=== PATIENT | male | born 1985 | race Caucasian/White ===

== ENCOUNTER 2018-01-09 09:53 | Emergency (ER) | payer SELFPAY ==
[2018-01-09 10:10] VITALS: BP 124/84; PULSE 82; RESP 20; TEMP 37.2; O2SAT 99; BMI 25.8
--- NOTE | 2018-01-09 10:14 | HMH.EDUTC ---
[facility] [place] Clinical Impression: Follow up Disposition: Home, Self-Care Condition on Discharge: Good Additional Instructions: Return to work Over the counter Motrin or Tylenol as needed for pain or fever Follow up with family doctor Return if needed Referrals: Tony Love MD [Primary Care Provider] - Forms: Work/School Release Time of Disposition: 10:23 Medical Decision Making - Medical Records Medical records reviewed: Yes: I reviewed the patient's medical records. Vital Signs: 01/09/18 10:10 Temperature 99 F Temperature Source Temporal Artery Scan Pulse Rate [Right] 82 Respiratory Rate 20 Blood Pressure [Right Arm] 124/84 Blood Pressure Mean [Right Arm] 97 Blood Pressure Source [Right Arm] Automatic Cuff Blood Pressure Position [Right Arm] Sitting 02 Sat by Pulse Oximetry 99 Oxygen Delivery Method Room Air - Milton Inquiry Pt receiving controlled substance: No Milton was queried for this patient: No [facility] [place] HPI - General Stated complaint: cold cough Mode of Arrival: Ambulatory Source of Information: Patient Limitations: No Limitations Description of Symptoms (Recalled from Triage Doc. by RN): STATES NEED FLU TEST TO RETURN TO WORK HEENT Symptoms (Recalled from RN notes): No Resp Symptoms (Recalled from RN notes): No Skin Symptoms (Recalled from RN notes): No MS Symptoms (Recalled from RN notes): No Functional Status (Recalled from RN notes): N - History of Present Illness Provider Complaint: Patient state that he was treated for the flu last week States that he went to go back to work and they would not let him return until he came back and got tested for the flu again and had a negative result State that he is feeling much better just here to get a flu test - Related Data Home Medications Medication Instructions Recorded Confirmed buprenorphine 8 mg-naloxone 2 mg 2 tab SUBLINGUAL QDAY 12/12/17 sublingual tablet Allergies Allergy/AdvReac Type Severity Reaction Status Date / Time No Known Allergies Allergy Verified 01/09/18 10:14 - Worker's Comp Is this a Worker's Comp case?: No [facility] History I have reviewed the patient's past medical history: Yes Other Surgeries: Yes: Hernia Repair, Other (Oral Surgery, Plastic Surgery on LEFT thumb.) - *Social History Smoking Status: Current every day smoker Tobacco Type: cigarettes Alcohol Intake: never - Psychiatric History Expresses thoughts of harming self/others: None Suicide Plan Description: No Plan *Family Hx:: Cancer, Coronary Artery Disease ROS Obtained: Yes All systems reviewed & no additional complaints - Constitutional Constitutional: Denies chills, Denies fever(s) Physical Exam - General General appearance: alert, in no apparent distress - ENT ENT exam: Present: normal exam, normal oropharynx, mucous membranes moist, TM's normal bilaterally, normal external ear exam - Respiratory Respiratory exam: Present: normal lung sounds bilaterally. Absent: respiratory distress - Cardiovascular Cardiovascular exam: Present: regular rate, normal rhythm. Absent: JVD - Abdominal Exam Abdominal exam: Present: soft, normal bowel sounds. Absent: distention, tenderness, guarding - Neurological Exam Neurological exam: Present: alert, oriented X3
--- NOTE | 2018-01-09 10:18 | ED_ITS ---
[facility] [place] Disposition Clinical Impression: Follow up Disposition: Home, Self-Care Condition on Discharge: Good Additional Instructions: Return to work Over the counter Motrin or Tylenol as needed for pain or fever Follow up with family doctor Return if needed Referrals: Tony Love MD [Primary Care Provider] - Forms: Work/School Release Time of Disposition: 10:23 Medical Decision Making - Medical Records Medical records reviewed: Yes: I reviewed the patient's medical records. Vital Signs: 01/09/18 10:10 Temperature 99 F Temperature Source Temporal Artery Scan Pulse Rate [Right] 82 Respiratory Rate 20 Blood Pressure [Right Arm] 124/84 Blood Pressure Mean [Right Arm] 97 Blood Pressure Source [Right Arm] Automatic Cuff Blood Pressure Position [Right Arm] Sitting 02 Sat by Pulse Oximetry 99 Oxygen Delivery Method Room Air - Milton Inquiry Pt receiving controlled substance: No Milton was queried for this patient: No [facility] [place] HPI - General Stated complaint: cold cough Mode of Arrival: Ambulatory Source of Information: Patient Limitations: No Limitations Description of Symptoms (Recalled from Triage Doc. by RN): STATES NEED FLU TEST TO RETURN TO WORK HEENT Symptoms (Recalled from RN notes): No Resp Symptoms (Recalled from RN notes): No Skin Symptoms (Recalled from RN notes): No MS Symptoms (Recalled from RN notes): No Functional Status (Recalled from RN notes): N - History of Present Illness Provider Complaint: Patient state that he was treated for the flu last week States that he went to go back to work and they would not let him return until he came back and got tested for the flu again and had a negative result State that he is feeling much better just here to get a flu test - Related Data Home Medications Medication Instructions Recorded Confirmed buprenorphine 8 mg-naloxone 2 mg 2 tab SUBLINGUAL QDAY 12/12/17 sublingual tablet Allergies Allergy/AdvReac Type Severity Reaction Status Date / Time No Known Allergies Allergy Verified 01/09/18 10:14 - Worker's Comp Is this a Worker's Comp case?: No [facility] History I have reviewed the patient's past medical history: Yes Other Surgeries: Yes: Hernia Repair, Other (Oral Surgery, Plastic Surgery on LEFT thumb.) - *Social History Smoking Status: Current every day smoker Tobacco Type: cigarettes Alcohol Intake: never - Psychiatric History Expresses thoughts of harming self/others: None Suicide Plan Description: No Plan *Family Hx:: Cancer, Coronary Artery Disease ROS Obtained: Yes All systems reviewed & no additional complaints - Constitutional Constitutional: Denies chills, Denies fever(s) Physical Exam - General General appearance: alert, in no apparent distress - ENT ENT exam: Present: normal exam, normal oropharynx, mucous membranes moist, TM's normal bilaterally, normal external ear exam - Respiratory Respiratory exam: Present: normal lung sounds bilaterally. Absent: respiratory distress - Cardiovascular Cardiovascular exam: Present: regular rate, normal rhythm. Absent: JVD - Abdominal Exam Abdominal exam: Present: soft, normal bowel sounds. Absent: distention, tenderness, guarding - Neurological Exam Neurological exam: Present: alert, oriented X3
[2018-01-09 10:24] LABS: UTC Influenza A Antigen Negative (Negative); UTC Influenza B Antigen Negative (Negative)
[2018-01-09 10:32] VITALS: BP 124/84; PULSE 82; RESP 20; TEMP 37.2; O2SAT 99
== END 2018-01-09 10:36 | disposition home or self-care (01) ==
PROVIDERS: Nurse Practitioner; Emergency Provider Emergency Medicine; Family Provider Internal Medicine Adolescent Medicine; PCP Internal Medicine Adolescent Medicine
DX: J10.1 Influenza due to other identified influenza virus with other respiratory manifestations (principal)
CPT/HCPCS: 87804; 99202

== ENCOUNTER → 2018-05-13 06:33 | Outpatient (CLI) | payer OTHER, SELFPAY ==
--- NOTE | 2018-05-13 06:40 | XR_ITS ---
XR chest 2V HISTORY: ITS.REASON: PT CURRENT SMOKER ORDERING PHYSICIAN: Quincy Colvin PATIENT AGE: 32 years COMPARISON: None FINDINGS: The cardiomediastinal silhouette and pulmonary vascularity are within normal limits. The lungs are clear without infiltrates, suspicious nodules, or pleural effusions. No acute bony abnormalities. IMPRESSION: Negative chest, no acute finding
[2018-05-13 07:12] LABS: Basophils % 0.2 % (0.1-2.0); Eosinophils # 0.4 K/mm3 (0.0-0.4); Eosinophils % 4.5 % (0.1-12.0); Hematocrit 39.9 % (42.0-52.0); Hemoglobin 14.6 g/dL (14.1-18.0); Lymphocytes # 3.5 K/mm3 (0.7-4.5); Lymphocytes % 38.3 K/mm3 (10-50); Mean Corpuscular HGB Conc 36.7 g/dL (31.8-35.4); Mean Corpuscular Hemoglobin 33.4 pg (27.0-31.2); Mean Corpuscular Volume 91.2 fl (80-94); Mean Platelet Volume 8.2 fl (7.4-10.4); Monocytes # 0.6 K/mm3 (0.1-1.0); Monocytes % 6.8 % (1.7-9.3); Neutrophils # 4.6 K/mm3 (1.8-7.8); Neutrophils % 50.2 % (37.0-80.0); Platelet Count 218 K/mm3 (142-424); Red Blood Count 4.38 M/mm3 (4.60-6.20); Red Cell Distribution Width 12.3 % (11.5-17.5); White Blood Count 9.2 K/mm3 (4.8-10.8)
[2018-05-13 07:17] LABS: Blood Urea Nitrogen 17 mg/dL (7-18); Carbon Dioxide 28 mmol/L (21.0-32.0); Chloride 107 mmol/L (98-107); Creatinine,Serum 0.86 mg/dL (0.70-1.30); Estimated Glomerular Filt Rate 103 ml/min (>60); GFR (African American) 125 ML/MIN (>60); Glucose 94 mg/dL (74-106); Sodium 141 mmol/L (136-145)
== END ==
PROVIDERS: PCP Internal Medicine Adolescent Medicine; Visit Provider Orthopaedic Surgery Sports Medicine
DX: Z01.818 Encounter for other preprocedural examination (principal); Z87.898 Personal history of other specified conditions; R73.09 Other abnormal glucose
CPT/HCPCS: 36415; 71046; 80048; 85025

== ENCOUNTER 2018-05-17 10:00 | Outpatient (RCR) | payer OTHER, SELFPAY | END 2018-05-17 10:01 | disposition home or self-care (01) | LOC: OT 10:00 | PROVIDERS: Family Provider Internal Medicine Adolescent Medicine; PCP Internal Medicine Adolescent Medicine; Visit Provider Orthopaedic Surgery | DX: M25.512 Pain in left shoulder (principal); S49.90XA Unspecified injury of shoulder and upper arm, unspecified arm, initial encounter | CPT/HCPCS: 97014; 97035; 97110; 97140; 97164; 97165; G0283 ==

== ENCOUNTER 2018-12-03 15:00 | Outpatient (RCR) | payer OTHER, SELFPAY | END 2018-12-03 15:05 | disposition home or self-care (01) | LOC: OT 15:00 | PROVIDERS: Family Provider Internal Medicine Adolescent Medicine; PCP Internal Medicine Adolescent Medicine; Visit Provider Orthopaedic Surgery | DX: M25.312 Other instability, left shoulder (principal) | CPT/HCPCS: 97014; 97110; 97140; 97164; 97165; G0283 ==

== ENCOUNTER 2020-12-07 11:20 | Emergency (ER) | payer OTHER, SELFPAY ==
[2020-12-07 11:20] VITALS: BP 136/84; PULSE 92; RESP 14; TEMP 36.6; O2SAT 97; BMI 38.0
--- NOTE | 2020-12-07 11:40 | HMH.EDUTC ---
[facility] [place] Disposition Clinical Impression: Exposure to COVID-19 virus Disposition: Home, Self-Care Condition on Discharge: Good Instructions: Preventing the Spread of Coronavirus Discharge Instructions Additional Instructions: Drink plenty of fluids. Take tylenol for pain or fever. Return if you begin to have difficulty breathing. Follow up with your regular doctor. GO TO THE ER FOR ANY WORSENING SYMPTOMS Referrals: Tony Love MD [Primary Care Provider] - Time of Disposition: 11:42 Medical Decision Making - Medical Records Medical records reviewed: No: I reviewed the patient's medical records. - Milton Inquiry Pt receiving controlled substance: No [facility] [place] HPI - General Stated complaint: covid exposure Time Seen by Provider: 12/07/20 11:40 - History of Present Illness Provider Complaint: He states that he was exposed to covid thru a business contact around 3 days ago. He denies any symptoms so far. He needs a covid test for his work. - Related Data Home Medications Medication Instructions Recorded Confirmed buprenorphine 8 mg-naloxone 2 mg 1 tab SUBLINGUAL DAILY 12/08/19 02/10/20 sublingual tablet Previous Rx's Medication Instructions Recorded cephALEXin [Keflex 500mg Cap] 500 mg PO TID #30 cap 02/11/20 Allergies Allergy/AdvReac Type Severity Reaction Status Date / Time No Known Allergies Allergy Verified 12/08/19 11:12 [facility] History - Hepatitis A Screen Attestation statement:: This patient has been screened for Hepatitis A risk factors. I have reviewed the patient's past medical history: Yes Other Surgeries: Yes: Hernia Repair, Other Comment: left shoulder surgery - Social History Smoking Status: Current every day smoker Tobacco Type: cigarettes, smokeless tobacco # Packs/Day (cigarettes): 1 Alcohol Intake: never Substance Use Type: former substance user Occupational Status: employed Housing: house Household Members: significant other, children Family Hx:: Cancer, Coronary Artery Disease ROS Obtained: Yes All systems reviewed & no additional complaints - Constitutional Constitutional: Reports system reviewed and no additional complaints, except as docu - Eyes Eyes: Reports system reviewed and no additional complaints, except as docu - ENT Ears, Nose, Mouth, and Throat: Reports system reviewed and no additional complaints, except as docu - Cardiovascular Cardiovascular: Reports system reviewed and no additional complaints, except as docu - Respiratory Respiratory: Reports system reviewed and no additional complaints, except as docu - Gastrointestinal Gastrointestingal: Reports: system reviewed and no additional complaints, except as docu Physical Exam - General General appearance: alert, in no apparent distress - Head Head exam: atraumatic, normocephalic, normal inspection - Eye Eye exam: Present: normal appearance, PERRL, EOMI - ENT ENT exam: Present: normal exam, normal oropharynx, mucous membranes moist, TM's normal bilaterally, normal external ear exam - Neck Neck exam: Present: normal inspection, full ROM, trachea midline. Absent: meningismus, lymphadenopathy - Chest Chest inspection: Present: normal inspection, symmetric chest wall rise. Absent: tenderness - Respiratory Respiratory exam: Present: normal lung sounds bilaterally. Absent: respiratory distress - Cardiovascular Cardiovascular exam: Present: regular rate, normal rhythm. Absent: JVD - Abdominal Exam Abdominal exam: Present: soft, normal bowel sounds. Absent: distention, tenderness, guarding - Extremities Exam Extremities exam: Present: normal inspection, full ROM, normal capillary refill. Absent: calf tenderness - Back Exam Back exam: Present: normal inspection. Absent: tenderness - Neurological Exam Neurological exam: Present: alert, oriented X3 - Psychiatric Psychiatric exam: Present: normal affect, normal mood - Skin Skin exam: Present: w
[2020-12-07 11:43] VITALS: BP 136/94; PULSE 92; RESP 14; TEMP 36.6; O2SAT 97
[2020-12-08 09:12] LABS: Covid-19 Nasal PCR Sendout P&C NEGATIVE
== END 2020-12-07 11:44 | disposition home or self-care (01) ==
PROVIDERS: Emergency Provider Nurse Practitioner Family; PCP Internal Medicine Adolescent Medicine
DX: Z20.822 Contact with and (suspected) exposure to COVID-19 (principal); F17.210 Nicotine dependence, cigarettes, uncomplicated
CPT/HCPCS: 99202; G0463; U0004

== ENCOUNTER → 2021-06-21 14:34 | Outpatient (CLI) | payer OTHER, SELFPAY ==
--- NOTE | 2021-06-21 14:37 | XR_ITS ---
PROCEDURE: XR HAND LT MIN 3V CLINICAL INDICATION: left hand pain COMPARISON: CR HANDL3 HAND-LT-3 VIEWS from 03/12/2016 FINDINGS: No acute fracture or dislocation. Deformity is present involving the distal aspect of the distal phalanx of the thumb secondary to an old fracture. No lytic or blastic change. No bony erosive process. The joint spaces are well-preserved. No significant degenerative/arthritic changes. No erosive changes evident. Other findings:None. IMPRESSION: No acute findings. Dictated by: Luis Waller MD 06/21/2021 15:42 Luis Waller MD in [place] 06/21/2021 15:42
== END ==
PROVIDERS: PCP Internal Medicine Adolescent Medicine; Visit Provider Orthopaedic Surgery
DX: M79.642 Pain in left hand (principal)
CPT/HCPCS: 73130

== ENCOUNTER → 2021-06-24 10:29 | Outpatient (CLI) | payer OTHER, SELFPAY ==
[2021-06-24 10:53] LABS: Basophils % 0.5 % (0.1-2.0); Eosinophils # 0.2 K/mm3 (0.0-0.4); Eosinophils % 2.7 % (0.1-12.0); Hematocrit 38.8 % (42.0-52.0); Hemoglobin 13.1 g/dL (14.1-18.0); Lymphocytes # 3.1 K/mm3 (0.7-4.5); Lymphocytes % 55.7 % (10-50); Mean Corpuscular HGB Conc 33.8 g/dL (31.8-35.4); Mean Corpuscular Hemoglobin 30.1 pg (27.0-31.2); Mean Corpuscular Volume 89.1 fl (80-94); Mean Platelet Volume 8.4 fl (7.4-10.4); Monocytes # 0.3 K/mm3 (0.1-1.0); Neutrophils % 35.3 % (37.0-80.0); Platelet Count 187 K/mm3 (142-424); Red Blood Count 4.36 M/mm3 (4.60-6.20); Red Cell Distribution Width 13.2 % (11.5-17.5); White Blood Count 5.6 K/mm3 (4.8-10.8)
[2021-06-24 10:57] LABS: MANUAL DIFFERENTIAL MANUAL DIFFERENTIAL (MANUAL DIFF)
[2021-06-24 11:36] LABS: Eosinophils % 3 % (0-3); Lymphocytes % 53 % (10-50); Monocytes % 5 % (2-9); Neutrophils % 39 % (42-76); Platelet Estimate Normal; RBC Morphology Normal; Total Cells Counted 100
[2021-06-24 11:41] LABS: Alanine Aminotransferase 27 U/L (12-78); Albumin Level 3.7 g/dl (3.5-5.0); Albumin/Globulin Ratio 1.6 (1.1-1.8); Alkaline Phosphatase 77 U/L (38-126); Anion Gap 11.1 mEq/L (5-15); Aspartate Amino Transferase 28 U/L (17-59); Bilirubin,Total 0.7 mg/dl (0.2-1.3); Blood Urea Nitrogen 18 mg/dl (9-20); Calcium 9.1 mg/dl (8.4-10.2); Carbon Dioxide 29 mmol/L (22.0-30.0); Chloride 105 mmol/L (98-107); Estimated Glomerular Filt Rate 110 ml/min (>60); GFR (African American) 133 ML/MIN (>60); Globulin 2.3 g/dL (1.3-3.2); Glucose 111 mg/dl (74-100); Potassium 4.1 mmoL/L (3.5-5.1); Sodium 141 mmol/L (136-145)
== END ==
PROVIDERS: Visit Provider Orthopaedic Surgery
DX: Z01.818 Encounter for other preprocedural examination (principal); Z11.52 Encounter for screening for COVID-19; M67.442 Ganglion, left hand
CPT/HCPCS: 36415; 80053; 85007; 85025; U0003

== ENCOUNTER 2021-06-27 07:43 | Day surgery (SDC) | payer OTHER, SELFPAY ==
[2021-06-23 14:04] VITALS: BMI 27.2
[2021-06-27 07:57] VITALS: BP 123/85; PULSE 58; RESP 18; TEMP 36.6; O2SAT 98
--- NOTE | 2021-06-27 08:39 | HMH.ANESCL ---
[facility] Anesthesia Checklist - Patient Identification Patient Identification: Arm Band - Structural Data Admitted From: Home Planned Operative Procedure/s: Tendon Sheath Ganglion Cyst Removal 3rd Digit Consent for Planned Operative Procedure(s) Verified: Yes Verified Documents: Surgical Consent, History and Physical - NPO Status Verified Time NPO: 00:00 - Additional verifications Anesthesia Reactions: No Hx Blood Transfusions: No Blood Transfusion Reaction: No - Airway Assessment C-Spine Mobility Assessed: Yes (mp2) TMJ Mobility Assessed: Yes Dentition: Good Dentition - Neurological Assessment Level of Consciousness: Awake, Alert - Anesthesia Plan Anesthesia Risk discussed: Yes Anesthesia Plan: Verified ASA Class: II Anesthesia Type: MAC [facility] History I have reviewed the patient's past medical history: Yes Medical History: Denies:: Cancer, Diabetes Mellitus Type 1, Diabetes Mellitus Type 2, Internal Pacemaker, MRSA, Seizures *Have you ever received a pneumonia vaccine?: No *Have you received a flu vaccine this season?: No Other Medical History: Denies: Blood Transfusion Reaction Anesthesia experience/problems:: nac Laterality Cases: Left: Arthroscopy Shoulder Other Surgeries: Yes: Hernia Repair, Other. No: Pacemaker Amputation: No Fractures: No - *Social History Last grade of school completed: High school graduate Smoking Status: Former smoker Tobacco Type: smokeless tobacco # Packs/Day (cigarettes): 1 Alcohol Intake: never Substance Use Type: former substance user *Occupational Status:: employed Housing: house Household Members: significant other, children *Travel in the last 8 weeks: None Family Hx:: Cancer, Coronary Artery Disease
[2021-06-27 09:06] VITALS: TEMP 43
[2021-06-27 09:25] VITALS: BP 93/48; PULSE 54; RESP 18; TEMP 36.4; O2SAT 97
[2021-06-27 09:40] VITALS: BP 87/46; PULSE 59; RESP 18; TEMP 36.4; O2SAT 96
[2021-06-27 09:55] VITALS: BP 104/68; PULSE 64; RESP 18; TEMP 36.4; O2SAT 96
[2021-06-27 10:10] VITALS: BP 114/81; PULSE 63; RESP 18; TEMP 36.4; O2SAT 96
--- NOTE | 2021-06-27 11:12 | HMH.OPNOTE ---
Date of procedure: 06/27/21 Pre-op Diagnosis:: Tendon sheath ganglion, left middle finger Post-op Diagnosis:: Same Procedure performed:: Excision of tendon sheath ganglion, left middle finger Surgeon:: Suraj Domínguez MD LOTTERY CLERK:: Domo Tomas Anesthesia: MAC, local (8 cc of 1% lidocaine with epinephrine) Estimated blood loss (mL): 1 Clinical Note:: Patient is a 35-year-old [id number] male with painful and tender swelling over the volar ulnar aspect of the base of the left middle finger. He has had problems with the finger for over a year now the swelling has recently increased in size. The swelling is markedly painful and tender. This is interfering with the hand function as well as causing discomfort. He rates his pain a 3 out of 10 at rest and an 8 out of 10 at its worse. He reports hitting his hand on something and grasping aggravate his pain. He is taking Aleve to help alleviate his pain somewhat. No history of any distal tingling or numbness. He is unemployed. 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 He is a non smoker. Evaluation in the office is consistent with a cystic swelling most likely tendon sheath ganglion. Removal of the lesion is indicated to relieve the pain, improve hand function as well as to obtain a pathological diagnosis. Please refer to my office note for full details. Operative findings:: A well encapsulated cystic lesion measuring about 0.5 cm x 0.5 cm in size noted in the subcutaneous test tissue over the ulnar border of the middle phalanx of the middle finger of the left hand just distal to the proximal finger crease. It is noted to be arising from the flexor tendon sheath of the middle finger and was removed with a small cuff of the sheath. There is no involvement of the underlying bone, tendon or neurovascular structures. The lesion is removed completely and sent for histopathologic examination. Operative note:: On the day of surgery, I met the patient in the preoperative area and again discussed the details of the procedure, risks and benefits, alternatives and the expected outcomes. The complications discussed include but are not limited to infection, bleeding, injury to nerves, tendons and blood vessels, incisional scar, contractures, finger stiffness, CRPS (complex regional pain syndrome- pain, sensory and temperature changes, swelling and stiffness), incomplete relief of pain, incomplete return of function, recurrence and likely need for further surgery in future and also the risks of anesthesia including heart attack, stroke, and even . I have also explained how additional surgery may be required if there are any complications or the lesion recurs. We have also discussed the postoperative pain management, recovery and also discussed the option of nonsurgical treatment. We expressed a full understanding and wished to proceed. A physical examination was performed and changes documented. The operative site was marked and initialed by me. Patient understood the risks, agreed to proceed with surgery and no guarantees or assurances were given or implied. The patient was brought to the operating room and placed supine on the operating table. The left upper extremity was placed over an arm table. All the bony prominences were appropriately padded. A MAC anesthesia was administered by the ship superintendent. A well-padded tourniquet cuff was placed over the upper arm. 1 g of IV Ancef was administered by the ship superintendent for preoperative prophylaxis. The left upper extremity was prepped and draped in the usual sterile fashion. A preprocedure timeout was performed as per hospital protocol. Digital ring block was obtained by injecting 8 cc of 1% lidocaine with epinephrine. A Rody's incision was marked over the swelling at the base of the middle finger. The skin incision was made over the lesion and carried through to the subcutaneous tissue. A 0.5 x 0.5 cm, cystic lesion was encountered in the subcutane
== END 2021-06-27 10:10 | disposition home or self-care (01) ==
LOC: OR 07:45
PROVIDERS: PCP Internal Medicine Adolescent Medicine; Visit Provider Orthopaedic Surgery
PROC: (CPT 26160; principal; 2021-06-27 09:15)
DX: M67.442 Ganglion, left hand (principal)
CPT/HCPCS: 26160; 96374

== ENCOUNTER → 2021-11-04 19:28 | Outpatient (CLI) | payer OTHER, SELFPAY | PROVIDERS: Visit Provider Orthopaedic Surgery | DX: Z20.822 Contact with and (suspected) exposure to COVID-19 (principal) | CPT/HCPCS: C9803; U0003; U0005 ==

== ENCOUNTER → 2021-12-16 12:22 | Outpatient (CLI) | payer OTHER, SELFPAY | PROVIDERS: Visit Provider Nurse Practitioner Family | DX: Z20.822 Contact with and (suspected) exposure to COVID-19 (principal) | CPT/HCPCS: C9803; U0003; U0005 ==

== ENCOUNTER → 2021-12-21 10:59 | Outpatient (CLI) | payer OTHER, SELFPAY | PROVIDERS: PCP Internal Medicine Adolescent Medicine; Visit Provider Nurse Practitioner | DX: U07.1 COVID-19 (principal) | CPT/HCPCS: C9803; U0003; U0005 ==

== ENCOUNTER 2021-12-21 16:47 | Emergency (ER) | payer OTHER, SELFPAY ==
[2021-12-21 18:37] VITALS: BP 0/0; PULSE 0; RESP 0; TEMP -17.7; TEMP 0
== END 2021-12-21 18:38 | disposition left against medical advice (07) ==
LOC: UTC 16:53
PROVIDERS: Emergency Provider Nurse Practitioner; PCP Internal Medicine Adolescent Medicine
DX: Z20.822 Contact with and (suspected) exposure to COVID-19 (principal)

== ENCOUNTER 2022-05-30 17:13 | Emergency (ER) | payer OTHER, SELFPAY ==
[2022-05-30 17:55] VITALS: BP 138/90; PULSE 76; RESP 19; TEMP 36.9; O2SAT 99; BMI 26.8
[2022-05-30 18:07] LABS: Adenovirus,PCR Not Detected (NotDetected); Bordetella Pertussis Not Detected (NotDetected); Chlamydophila Pneumoniae, PCR Not Detected (NotDetected); Coronavirus 229E Not Detected (NotDetected); Coronavirus NL63 Not Detected (NotDetected); Coronavirus OC43 Not Detected (NotDetected); Coronovirus HKU1,PCR Not Detected (NotDetected); Human Metapneumovirus Not Detected (NotDetected); Influenza A, PCR Not Detected (NotDetected); Influenza AH1, 2009 Not Detected (NotDetected); Influenza AH1, PCR Not Detected (NotDetected); Influenza AH3,PCR Not Detected (NotDetected); Influenza B, PCR Not Detected (NotDetected); Mycoplasma Pneumoniae, PCR Not Detected (NotDetected); Parainfluenza 1, PCR Not Detected (NotDetected); Parainfluenza 2, PCR Not Detected (NotDetected); Parainfluenza 3, PCR Not Detected (NotDetected); Parainfluenza 4, PCR Not Detected (NotDetected); Respiratory Syncytial Virus Not Detected (NotDetected); Rhinovirus/Enterovirus Not Detected (NotDetected)
--- NOTE | 2022-05-30 18:11 | HMH.EDUTC ---
[facility] [place] Disposition Clinical Impression: Sinusitis Qualifiers: Sinusitis location: unspecified location Chronicity: unspecified Qualified Code(s): J32.9 - Chronic sinusitis, unspecified Disposition: Home, Self-Care Condition on Discharge: Good Instructions: Sinusitis, DI for Sinusitis Additional Instructions: *Monitor Temp, Over the counter Motrin or Tylenol as directed/as needed Tylenol every 4 hours and Motrin every 6 hours (as long as your family doctor has told you that you can take it) for fever or pain. and straight to ER if unable to lower temp less than 101.0 after medication given *Warm salt water gargles may help to soothe the throat *Throat Lozenges *Warm fluids like tea with honey may help to soothe the throat *Sleep elevated *Humidifier/Vaporizer Follow up IMMEDIATELY for new or worsening symptoms or no Noticeable improvement over the next 48-72 hours. 911 for difficulty breathing or swallowing You were tested for today for COVID19 your test result should be back in the next 24-48 hours, you may check your results on the [facility] My Health Portal Make sure to take your Vitamins Vit. C Vit D and Zinc if you can take them Prescriptions: Amoxicillin/Potassium Clav [Amox-Clav 875-125 mg Tablet] 1 tab PO BID #14 tab Transmission Status: Pending to [id number] Fluticasone Propionate [Flonase 50mcg nasal spray 16gm] 1 spr NS DAILY #1 each [facility]: [id number] methylPREDNISolone [Medrol 4mg tab] 4 mg PO DIRECTED #21 tab Transmission Status: Pending to [facility] Referrals: Tony Love MD [Primary Care Provider] - As needed Forms: Work/School Release Time of Disposition: 18:16 Medical Decision Making - Milton Inquiry Pt receiving controlled substance: No Milton was queried for this patient: No Vital Signs: 05/30/22 17:55 Temperature 98.4 F Temperature Source Oral Pulse Rate [Right Brachial] 76 Respiratory Rate 19 Blood Pressure [Right Arm] 138/90 Blood Pressure Mean [Right Arm] 106 Blood Pressure Source [Right Arm] Automatic Cuff Blood Pressure Position [Right Arm] Sitting 02 Sat by Pulse Oximetry 99 Oxygen Delivery Method Room Air Orders (Tests/Meds): ORDERS Category Date Time Status Full Resp Panel w/COVID ([facility]) Routine Lab 05/30/22 17:58 Received [facility] [place] HPI - General Stated complaint: body aches, headache and soa Time Seen by Provider: 05/30/22 18:11 Mode of Arrival: Ambulatory Source of Information: Patient Limitations: No Limitations Description of Symptoms (Recalled from Triage Doc. by RN): PATIENT C/O BODY ACHES, CONGESTION, COUGH, AND HEADACHE HEENT Symptoms (Recalled from RN notes): No Resp Symptoms (Recalled from RN notes): No Skin Symptoms (Recalled from RN notes): No MS Symptoms (Recalled from RN notes): No Functional Status (Recalled from RN notes): WNL - History of Present Illness Provider Complaint: Patient states that he has been having sinus pain and pressure, headache, chills body aches and scratchy throat for several days and States that he feels like he had pressure behind his eyes and in his teeth this morning States that this evening he was feeling fatigue so he came in to get checked out - Related Data Home Medications Medication Instructions Recorded Confirmed buprenorphine 8 mg-naloxone 2 mg 0.5 tab SUBLINGUAL DAILY 12/08/19 12/16/21 sublingual tablet Previous Rx's Medication Instructions Recorded amoxicillin 500 mg capsule 500 mg PO Q12H 10 Days #20 cap 12/16/21 Amoxicillin/Potassium Clav 1 tab PO BID #14 tab 05/30/22 [Amox-Clav 875-125 mg Tablet] Fluticasone Propionate [Flonase 1 spr NS DAILY #1 each 05/30/22 50mcg nasal spray 16gm] methylPREDNISolone [Medrol 4mg 4 mg PO DIRECTED #21 tab 05/30/22 tab] Allergies Allergy/AdvReac Type Severity Reaction Status Date / Time No Known Allergies Allergy Verified 12/16/21 13:16 - Worker's Comp Is this a
[2022-05-30 18:20] VITALS: BP 138/90; PULSE 76; RESP 19; TEMP 36.9; O2SAT 99
[2022-05-31 03:23] LABS: Coronavirus 19, PCR Detected (NotDetected)
== END 2022-05-30 18:24 | disposition home or self-care (01) ==
PROVIDERS: Emergency Provider Nurse Practitioner; PCP Internal Medicine Adolescent Medicine
DX: J32.9 Chronic sinusitis, unspecified (principal); U07.1 COVID-19; R06.2 Wheezing; R51.9 Headache, unspecified; R52 Pain, unspecified
CPT/HCPCS: 87581; 87632; 87798; 99212; C9803; G0463; U0003; U0005

== ENCOUNTER 2022-10-11 17:04 | Emergency (ER) | payer OTHER, SELFPAY ==
[2022-10-11 18:20] VITALS: BP 103/89; PULSE 89; RESP 20; TEMP 36.8; O2SAT 98; BMI 27.2
--- NOTE | 2022-10-11 18:36 | EXP.UTC ---
Discharge Plan Disposition Patient Disposition: Home, Self-Care Condition: Good Prescriptions Prescriptions: New azithromycin [Zithromax Z-Herbert] 250 mg tablet See Rx Instructions .ROUTE .COMPLEX 5 Days Qty: 6 0RF Rx Instructions: For 250 mg dose pack: take 500 mg today (day 1), then 250 mg for 4 days (days 2-5) Referrals Follow up/Referrals: Tony Love MD [Primary Care Provider] - See instructions Activity Restrictions/Add. Instructions Additional Instructions/Restrictions: *Monitor Temp, Over the counter Motrin or Tylenol as directed/as needed Tylenol every 4 hours and Motrin every 6 hours (as long as your family doctor has told you that you can take it) for fever or pain. and straight to ER if unable to lower temp less than 101.0 after medication given *Warm salt water gargles may help to soothe the throat *Throat Lozenges? *Warm fluids like tea with honey may help to soothe the throat? *Sleep elevated *Humidifier/Vaporizer Your throat swab was sent for culture. Those results are typically sent to your primary care. Be sure to follow up in 2-3 days with your family doctor/primary care physician if no improvement so they can review those result and treat if necessary. If you don?t have a primary care doctor, I recommend you get one but in the mean time, you will have to return to a walk in clinic Follow up IMMEDIATELY for new or worsening symptoms or no Noticeable improvement over the next 48-72 hours. 911 for difficulty breathing or swallowing Clinical Impressions Clinical Impression: Strep throat Stand Alone Forms Stand Alone Forms: Work/School Release Instructions Patient Instructions: DI for Strep Throat, Strep Throat Discharge ED Provider: Dominga Ledezma [facility] [place] HPI General Stated complaint: sore throar,cough,SOB congestion Mode of Arrival: Ambulatory Source of Information: Patient Limitations: No Limitations Time Seen by Provider: 10/11/22 18:36 Description of Symptoms (Recalled from Triage Doc. by RN): PATIENT C/O SORE THROAT, COUGH, HEADACHE, BODY ACHES, FATIGUE AND FEVER X 4 DAYS HEENT Symptoms (Recalled from RN notes): Yes Resp Symptoms (Recalled from RN notes): Yes Skin Symptoms (Recalled from RN notes): No MS Symptoms (Recalled from RN notes): No Functional Status (Recalled from RN notes): WNL History of Present Illness Provider Complaint: Patient states that he hasnt felt well for the last 3-4 days States that he has been having sore throat, cough, body aches, chills and headache state that feels like he has flu or strep throat Related Data Previous Rx's Medication Instructions Recorded azithromycin 250 mg tablet See Rx Instructions PO .COMPLEX 5 10/11/22 (Zithromax Z-Herbert) days #6 tabs Allergies Allergy/AdvReac Type Severity Reaction Status Date / Time No Known Allergies Allergy Verified 12/16/21 13:16 Worker's Comp Is this a Worker's Comp case?: No PFSH PFSH Surgical History (Updated 10/11/22 @ 18:34 by Diamante Johansen RN) History of hernia repair History of shoulder surgery History of tympanostomy tube placement Social History (Updated 10/11/22 @ 18:34 by Diamante Johansen RN) Smoking Status: Current every day smoker tobacco type: e-cigarettes and smokeless tobacco second hand exposure: No alcohol intake: never substance use type: former substance user current occupational status: employed Travel in the last 8 weeks: None household members: significant other and children housing: house current occupational exposures/hazards: No caffeine: Yes ROS Obtained: Yes All systems reviewed & no additional complaints except as documented and Yes Systems reviewed as appropriate & no additional complaints except as documented Constitutional Constitutional: Reports system reviewed and no additional complaints, except as documented, Reports as per HPI, Reports body ache, Reports chills, Reports fever(s) and Reports hea
[2022-10-11 18:47] LABS: UTC Strep Screen (Rapid) Positive (Negative)
[2022-10-11 18:48] LABS: UTC Influenza A Antigen Negative (Negative); UTC Influenza B Antigen Negative (Negative)
[2022-10-11 18:50] VITALS: BP 103/89; PULSE 89; RESP 20; TEMP 36.8; O2SAT 98
== END 2022-10-11 18:55 | disposition home or self-care (01) ==
PROVIDERS: Emergency Provider Nurse Practitioner; PCP Internal Medicine Adolescent Medicine
DX: J02.0 Streptococcal pharyngitis (principal); B95.0 Streptococcus, group A, as the cause of diseases classified elsewhere; R06.02 Shortness of breath; R50.9 Fever, unspecified; R09.81 Nasal congestion; R51.9 Headache, unspecified; R05.9 Cough, unspecified; R53.82 Chronic fatigue, unspecified; M79.10 Myalgia, unspecified site; F17.290 Nicotine dependence, other tobacco product, uncomplicated
CPT/HCPCS: 87804; 87880; 99213; G0463

== ENCOUNTER 2023-06-23 14:22 | Emergency (ER) | payer BC, SELFPAY ==
[2023-06-23] VITALS (9 sets, daily range): BP systolic 103–152; BP diastolic 66–107; PULSE 58–95; RESP 15–18; TEMP 36.6–36.9; O2SAT 95–99; BMI 27.9
--- NOTE | 2023-06-23 14:34 | XR_ITS ---
PROCEDURE INFORMATION: Exam: XR Chest Exam date and time: 06/23/2023 2:37 PM Age: 37 years old Clinical indication: Pain; Angina pectoris; Additional info: Dyspnea 2 weeks TECHNIQUE: Imaging protocol: Radiologic exam of the chest. Views: 1 view. COMPARISON: DX CXR2V XR chest 2V 05/13/2018 6:41 AM FINDINGS: Lungs: Unremarkable. No consolidation. Pleural spaces: Unremarkable. No pleural effusion. No pneumothorax. Heart/Mediastinum: Unremarkable. No cardiomegaly. Bones/joints: Unremarkable. IMPRESSION: No acute findings.
--- NOTE | 2023-06-23 14:35 | HMH.EDGENADL ---
Discharge Plan Disposition Patient Disposition: Home, Self-Care Condition: Good Prescriptions Prescriptions: No Action azithromycin [Zithromax Z-Herbert] 250 mg tablet See Rx Instructions .ROUTE .COMPLEX 5 Days Qty: 6 0RF Rx Instructions: For 250 mg dose pack: take 500 mg today (day 1), then 250 mg for 4 days (days 2-5) Referrals Follow up/Referrals: Thierry Corley MD [Staff Physician] - See instructions Activity Restrictions/Add. Instructions Additional Instructions/Restrictions: You were evaluated in the emergency department today. Please follow-up with cardiology. Return to the emergency department for any new or worsening symptoms. Clinical Impressions Clinical Impression: Chest pain, Palpitations, Near syncope Instructions Patient Instructions: DI for Atypical Chest Pain Discharge ED Provider: Luda Panchal General Adult HPI <J Ren Willis MD - Last Filed: 06/23/23 14:40> General Chief complaint: Chest Pain Stated complaint: cp Time Seen by Provider: 06/23/23 14:27 Mode of Arrival: Ambulatory Source of Information: Patient Limitations: No Limitations Description of Symptoms (Recalled from ER Triage Doc. by RN): Presents to ED with c/o worsening chest pain x 2-3 weeks. Patient further reports lightheadedness and SOB x 1 week. 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 Denies cardiac hx. History of Present Illness HPI narrative: Patient is a 37-year-old male here with multiple complaints. States for the last 2 months has been having palpitations at night that been waking him up from sleep. Additionally he has random episodes of some chest pain lightheadedness as well as some diaphoresis. He works in a welding component of a factory has been very hot lately with temperatures rising over 100 degrees. He states that today he got very lightheaded diaphoretic with some chest pain and presented to the emergency department today by the time I saw him he stated he is already feeling better after being cooled off. He denies any chest pain at the moment. States he is feeling much better. No family history of any sudden cardiac that he is aware of or any cardiac disease at a young age. He denies any drug use he does vape. No alcohol use. No history of any cardiac or pulmonary disease that he knows of in the past. Related Data Previous Rx's Medication Instructions Recorded azithromycin 250 mg tablet See Rx Instructions PO .COMPLEX 5 10/11/22 (Zithromax Z-Herbert) days #6 tabs Allergies Allergy/AdvReac Type Severity Reaction Status Date / Time No Known Allergies Allergy Verified 12/16/21 13:16 PFSH <Apple Willis MD - Last Filed: 06/23/23 14:40> PFS Disclaimer: The information contained in this section may have been updated after the patient was seen, as this information can be updated by other users. Surgical History (Updated 10/11/22 @ 18:34 by Diamante Johansen RN) History of hernia repair History of shoulder surgery History of tympanostomy tube placement Social History (Updated 10/11/22 @ 18:34 by Diamante Johansen RN) Smoking Status: Current every day smoker tobacco type: e-cigarettes and smokeless tobacco second hand exposure: No alcohol intake: never substance use type: former substance user current occupational status: employed Travel in the last 8 weeks: None household members: significant other and children housing: house current occupational exposures/hazards: No caffeine: Yes <Apple Willis MD - Last Filed: 06/23/23 14:40> ROS Obtained: Yes All systems reviewed & no additional complaints except as documented Physical Exam <Apple Willis MD - Last Filed: 06/23/23 14:40> General General appearance: other Respiratory Respiratory exam: Present normal lung sounds bilaterally; Absent respiratory distress or wheezes Cardiovascular Cardiovascular exam: Present regular rate; Absent tachycardia Neurological Exam Neurological exam: Present alert and oriente
--- NOTE | 2023-06-23 14:42 | ECG_ITS ---
APPROVED REPORT Exam: Resting ECG HR:95 bpm ECG Measurements Heart Rate 95 AXES TX 156 P 48 QRSd 84 QRS 24 QT 335 T 31 QTc 387 Conclusion SINUS RHYTHM NORMAL ECG UNCONFIRMED REPORT Electronically signed by : Tony Love MD 06/25/2023 19:56:23
[2023-06-23 14:54] LABS: Basophils % 0.5 % (0.1-2.0); Eosinophils # 0.2 K/mm3 (0.0-0.4); Eosinophils % 2.5 % (0.1-12.0); Hematocrit 42.6 % (42.0-52.0); Hemoglobin 13.9 g/dL (14.1-18.0); Lymphocytes # 4.5 K/mm3 (0.7-4.5); Lymphocytes % 56.3 % (10-50); Mean Corpuscular HGB Conc 32.6 g/dL (31.8-35.4); Mean Corpuscular Volume 92.1 fl (80-94); Mean Platelet Volume 8.8 fl (7.4-10.4); Monocytes # 0.6 K/mm3 (0.1-1.0); Monocytes % 6.9 % (1.7-9.3); Neutrophils # 2.7 K/mm3 (1.8-7.8); Neutrophils % 33.9 % (37.0-80.0); Platelet Count 252 K/mm3 (142-424); Red Blood Count 4.62 M/mm3 (4.60-6.20); Red Cell Distribution Width 12.7 % (11.5-17.5)
--- NOTE | 2023-06-23 14:54 | PC.NURSE ---
Rounded on patient. Call hoffmann within reach. Provided patient a wet wash cloth; nothing else needed at this time.
[2023-06-23 14:58] LABS: Alanine Aminotransferase 57 U/L (12-78); Albumin Level 4.5 g/dl (3.5-5.0); Albumin/Globulin Ratio 1.6 (1.1-1.8); Alkaline Phosphatase 96 U/L (38-126); Anion Gap 10.8 mEq/L (5-15); Aspartate Amino Transferase 48 U/L (17-59); Bilirubin,Total 0.5 mg/dl (0.2-1.3); Blood Urea Nitrogen 20 mg/dl (9-20); Calcium 9.4 mg/dl (8.4-10.2); Carbon Dioxide 31 mmol/L (22.0-30.0); Chloride 106 mmol/L (98-107); Creatinine Clearance Estimated 115 mL/min (50-200); Estimated Glomerular Filt Rate 75 ml/min (>60); GFR (African American) 91 ML/MIN (>60); Globulin 2.8 g/dL (1.3-3.2); Glucose 107 mg/dl (74-100); Potassium 3.8 mmoL/L (3.5-5.1); Sodium 144 mmol/L (136-145); Total Protein,Serum 7.3 g/dl (6.3-8.2)
[2023-06-23 15:00] LABS: MANUAL DIFFERENTIAL MANUAL DIFFERENTIAL (MANUAL DIFF)
[2023-06-23 15:03] LABS: D-Dimer 0.29 ug/mL (0.0-0.5)
[2023-06-23 15:13] LABS: Lymphocytes % 58 % (10-50); Monocytes % 6 % (2-9); Neutrophils % 36 % (42-76); Platelet Estimate Normal; Total Cells Counted 100
[2023-06-23 15:14] LABS: RBC Morphology Normal; Troponin I < 0.01 ng/ml (0.00-0.034)
[2023-06-23 15:31] LABS: Thyroid Stimulating Hormone 1.79 uIU/mL (0.465-4.68)
[2023-06-23 17:57] LABS: Troponin I < 0.01 ng/ml (0.00-0.034)
== END 2023-06-23 18:40 | disposition home or self-care (01) ==
PROVIDERS: Student in an Organized Health Care Education/Training Program; Emergency Provider Emergency Medicine; PCP Internal Medicine Adolescent Medicine
DX: R07.9 Chest pain, unspecified (principal); R55 Syncope and collapse; R06.02 Shortness of breath; R61 Generalized hyperhidrosis; F17.290 Nicotine dependence, other tobacco product, uncomplicated
CPT/HCPCS: 36415; 71045; 80053; 83735; 84443; 84484; 85007; 85025; 85378; 93005; 96360; 99285

== ENCOUNTER → 2023-07-10 15:07 | Outpatient (CLI) | payer BC, SELFPAY ==
[2023-07-10 16:28] LABS: Hemoglobin A1C 5.5 % (4.0-6.0)
[2023-07-10 16:37] LABS: Magnesium 1.9 mg/dl (1.6-2.3)
[2023-07-10 17:08] LABS: Thyroid Stimulating Hormone 1.18 uIU/mL (0.465-4.68)
== END ==
PROVIDERS: PCP Nurse Practitioner Family; Visit Provider Nurse Practitioner Family
DX: R00.2 Palpitations (principal); R73.9 Hyperglycemia, unspecified
CPT/HCPCS: 36415; 83036; 83735; 84443

== ENCOUNTER → 2023-07-16 16:11 | Outpatient (CLI) | payer BC, SELFPAY | PROVIDERS: PCP Nurse Practitioner Family; Visit Provider Nurse Practitioner Family | DX: R00.2 Palpitations (principal) | CPT/HCPCS: 93225; 93226 ==

== ENCOUNTER 2024-11-07 15:38 | Emergency (ER) | payer BC, SELFPAY ==
[2024-11-07 16:20] VITALS: BP 123/73; PULSE 71; RESP 18; TEMP 36.6; O2SAT 99; BMI 27.6
--- NOTE | 2024-11-07 16:21 | ED_ITS ---
Discharge Plan Disposition Patient Disposition: Home, Self-Care Condition: Good Prescriptions Prescriptions: New ondansetron 4 mg Tablet,Disintegrating 4 mg PO Q8H PRN (Reason: Nausea) Qty: 12 0RF No Action buprenorphine-naloxone 8-2 mg tablet, sublingual 8 tab SUBLINGUAL DAILY Referrals Follow up/Referrals: Tony Love MD [Primary Care Provider] - See instructions Activity Restrictions/Add. Instructions Additional Instructions/Restrictions: Drink plenty of fluids. Take tylenol or ibuprofen for pain or fever. Take the medications as directed. Follow up with your regular doctor. GO TO THE ER FOR ANY WORSENING SYMPTOMS Clinical Impressions Clinical Impression: Gastroenteritis Stand Alone Forms Stand Alone Forms: Work/School Release Instructions Patient Instructions: Viral Gastroenteritis, DI for Viral Gastroenteritis -- Adult, Ondansetron Print Language Print Language: Croatian Discharge ED Provider: Jeremy Waldron [facility] General Stated complaint: vomiting Time Seen by Provider: 11/07/24 16:21 Related Data Home Medications ?Medication ?Instructions ?Recorded ?Confirmed buprenorphine 8 mg-naloxone 2 mg 8 tab sublingual DAILY 11/07/24 11/07/24 sublingual tablet Previous Rx's ?Medication ?Instructions ?Recorded ondansetron 4 mg disintegrating 4 mg PO Q8H PRN Nausea #12 tabs 11/07/24 tablet Allergies Allergy/AdvReac Type Severity Reaction Status Date / Time No Known Allergies Allergy Verified 12/16/21 13:16 [facility] Disclaimer: The information contained in this section may have been updated after the patient was seen, as this information can be updated by other users. Surgical History (Updated 10/11/22 @ 18:34 by Diamante Johansen RN) History of hernia repair History of shoulder surgery History of tympanostomy tube placement Social History (Updated 10/11/22 @ 18:34 by Diamante Johansen RN) Smoking Status: Current every day smoker tobacco type: e-cigarettes and smokeless tobacco second hand exposure: No alcohol intake: never substance use type: former substance user current occupational status: employed Travel in the last 8 weeks: None household members: significant other and children housing: house current occupational exposures/hazards: No caffeine: Yes Have you lived/traveled outside [place] in past 30 days?: No Contact w/someone who lives/traveled outside [place] past 30 days?: No Exposure to someone with infectious disease in past 14 days?: No Do you have a fever (greater than 100.4 F or 38 C)?: No Have you tested positive for COVID-19: No Exposed to someone with COVID-19 in past 14 days?: No Do you have a sore throat?: No Do you have a cough?: No Do you have any weakness?: No Do you have any diarrhea?: No Are you experiencing any unusual bleeding?: No Do you have any muscle aches/pain?: No Do you have any abdominal pain?: No Are you experiencing loss of taste or smell?: No ROS Obtained: Yes All systems reviewed & no additional complaints except as docu mented Constitutional Constitutional: Denies chills, Denies fever(s) and Reports poor appetite ENT Ears, Nose, Mouth, and Throat: Denies dizziness and Denies sore throat Cardiovascular Cardiovascular: Denies dyspnea Respiratory Respiratory: Denies chest congestion, Denies cough and Denies dyspnea Gastrointestinal Gastrointestingal: Reports as per HPI Musculoskeletal Musculoskeletal: Denies arthralgias Integumentary/Breasts Skin/Breast: Denies rash Neurologic Neurologic: Denies dizziness Physical Exam General General appearance: alert and in no apparent distress Head Head exam: atraumatic, normocephalic and normal inspection Eye Eye exam: Present normal appearance, PERRL and EOMI ENT ENT exam: Present mucous membranes moist and normal external ear exam Expanded ENT Exam TM/Canal exam: Bilateral TM: erythema and bulging Nose exam: Absent sinus tenderness Mouth exam: Present normal external inspection; Absent drooling Teeth exam: Present normal inspection Throat exam: Present tonsillar erythema, tonsillomegaly and tonsillar exudate Neck Neck exam: Present normal inspection, full ROM and trachea midline; Absent tenderness, meningismus or lymphadenopathy Chest Chest inspection: Present normal inspection and symmetric chest wall rise; Absent tenderness Respiratory Respiratory exam: Present normal lung sounds bilaterally; Absent respiratory distress, wheezes, stridor or accessory muscle use Cardiovascular Cardiovascular exam: Present regular rate and normal rhythm; Absent systolic murmur or diastolic murmur Abdominal Exam Abdominal exam: Present soft and normal bowel sounds; Absent distention, tenderness, guarding, rebound or rigidity Extremities Exam Extremities exam: Present normal inspection and normal capillary refill; Absent calf tenderness Back Exam Back exam: Present normal inspection and full ROM; Absent tenderness, CVA tenderness (R) or CVA tenderness (L) Neurological Exam Neurological exam: Present alert, oriented X3 and CN II-XII intact Psychiatric Psychiatric exam: Present normal affect and normal mood Skin Skin exam: Present warm, dry, intact and normal color Medical Decision Making Medical Records Medical records reviewed: No I reviewed the patient's medical records. Screening: Per USPSTF and CDC recommendations, given the prevalence of disease in our region, it is our hospital?s policy to screen for HIV and viral Hepatitis for all patients aged 18 and over and those with ongoing risk factors. [place] Inquiry Pt receiving controlled substance: No Lab Data Lab results reviewed: Yes I reviewed the patient's lab results.
[2024-11-07] MEDS: ONDANSETRON 4MG ODT 4 MG SL (16:24)
[2024-11-07 17:26] VITALS: BP 123/73; PULSE 71; RESP 18; TEMP 36.6
== END 2024-11-07 17:31 | disposition home or self-care (01) ==
PROVIDERS: Emergency Provider Nurse Practitioner Family; PCP Internal Medicine Adolescent Medicine
DX: K52.9 Noninfective gastroenteritis and colitis, unspecified (principal); R11.2 Nausea with vomiting, unspecified; R63.8 Other symptoms and signs concerning food and fluid intake
CPT/HCPCS: 99212; G0381; Q0162